=== PATIENT | female | born 1960 | race Caucasian/White ===

== ENCOUNTER 2016-09-13 18:11 | Emergency (ER) | payer OTHER ==
[~2016-09-13] VITALS: Ht 167.6 cm; Wt 771.4 kg
[2016-09-13 19:04] LABS: HEMATOCRIT 38.9 % (36.0-46.0); MCH 31.5 PG (29.0-34.0); MCHC 34.7 G/DL (30.0-36.0); MCV 90.7 FL (83-99); MEAN PLAT.VOLUME 10.4 uM^3 (9.5-12.4); PLATELET COUNT 196 K/uL (156-360); RBC DIS.WIDTH-CV 13.8 % (11.8-14.6); RBC DIS.WIDTH-SD 44.8 % (39-53); RED BLOOD COUNT 4.29 M/uL (3.80-5.20); WHITE BLOOD COUNT 5.6 K/uL (4.1-10.2)
[2016-09-13 19:18] LABS: CHLORIDE 112 mEq/L (99-109); POTASSIUM 3.3 mEq/L (3.7-5.4); SODIUM 145 mEq/L (136-147)
[2016-09-13 19:20] LABS: GLUCOSE 127 mg/dL (70-99)
[2016-09-13 19:21] LABS: ANION GAP 11 MEQ/L (2-14)
[2016-09-13 19:24] LABS: UREA NITROGEN (BUN) 13 mg/dL (9-23)
[2016-09-13 19:25] LABS: GFR ESTIMATE (CALCULATED) > 59 mL/min/
[2016-09-13] MEDS ORDERED: PEN-VEE K,VEET500 MG PO (20:54)
[2016-09-13] MEDS ORDERED: VENTOLIN HFA18 GM IH (20:54)
[2016-09-13 21:07] VITALS: BP 128/60
== END 2016-09-13 21:10 | disposition home or self-care (01) ==
LOC: EME 18:11 → RME 18:11
DX: J40 Bronchitis, not specified as acute or chronic (principal); K04.7 Periapical abscess without sinus; I10 Essential (primary) hypertension; Z77.22 Contact with and (suspected) exposure to environmental tobacco smoke (acute) (chronic); Z88.6 Allergy status to analgesic agent
CPT/HCPCS: 71020; 80048; 85027; 99281; 99284

== ENCOUNTER 2017-07-01 17:06 | Emergency (ER) | payer OTHER ==
[~2017-07-01 17:06] MED LIST: PEN-VEE K,VEET500 MG PO; VENTOLIN HFA18 GM IH
== END 2017-07-01 17:35 | disposition left against medical advice (07) ==
LOC: EME 17:06
DX: M54.9 Dorsalgia, unspecified (principal); M79.604 Pain in right leg; M79.605 Pain in left leg; Z53.21 Procedure and treatment not carried out due to patient leaving prior to being seen by health care provider

== ENCOUNTER 2017-11-02 21:53 | Observation (INO) | payer OTHER ==
[~2017-11-02] VITALS: Ht 167.6 cm; Wt 71.0 kg
[2017-11-02 22:42] LABS: HEMATOCRIT 37.6 % (36.0-46.0); HEMOGLOBIN 12.8 G/DL (11.9-15.5); MCH 30.7 PG (29.0-34.0); MCV 90.2 FL (83-99); PLATELET COUNT 239 K/uL (156-360); RBC DIS.WIDTH-CV 13.7 % (11.8-14.6); RBC DIS.WIDTH-SD 45.6 % (39-53); RED BLOOD COUNT 4.17 M/uL (3.80-5.20); WHITE BLOOD COUNT 8.8 K/uL (4.1-10.2)
[2017-11-02 22:54] LABS: CHLORIDE 109 mEq/L (99-109); SODIUM 142 mEq/L (136-147)
[2017-11-02 22:55] LABS: GLUCOSE 97 mg/dL (70-99)
[2017-11-02 22:59] LABS: CREATININE 0.8 mg/dL (0.6-1.3); GFR ESTIMATE (CALCULATED) > 59 mL/min/
[2017-11-02 23:00] LABS: UREA NITROGEN (BUN) 10 mg/dL (9-23)
[2017-11-02 23:07] LABS: TROP-I INTERPRETATION NEGATIVE; TROPONIN-I < 0.01 ng/mL (0.0-0.30)
[2017-11-03 01:27] LABS: TROP-I INTERPRETATION NEGATIVE; TROPONIN-I < 0.01 ng/mL (0.0-0.30)
[2017-11-03] MEDS ORDERED: OXYCODONE HCL10 MG PO (03:11)
[2017-11-03] MEDS ORDERED: OXYMORPHONE HCL10 M1 PO (03:11)
[2017-11-03] MEDS ORDERED: VALIUM5 MG PO (03:13)
[2017-11-03] MEDS ORDERED: NEURONTIN400 MG PO (03:13)
[2017-11-03 03:36] LABS: APPEARANCE CLEAR ((CLEAR)); BILIRUBIN NEGATIVE; BLOOD NEGATIVE; COLOR YELLOW ((YELLOW)); GLUCOSE (STRIP) NEGATIVE; KETONES 5; LEUKOCYTES NEGATIVE; NITRITE NEGATIVE; PROTEIN (STRIP) NEGATIVE; SPECIFIC GRAVITY 1.013 (1.000-1.030); UCUL ADDED? NO; UROBILINOGEN 0.2 MG/DL (0.2-1.0)
[2017-11-03 07:33] VITALS: BP 134/60
[2017-11-03 09:17] VITALS: BP 131/70
[2017-11-03 11:21] VITALS: BP 130/59
[2017-11-03 12:55] LABS: TROP-I INTERPRETATION NEGATIVE; TROPONIN-I < 0.01 ng/mL (0.0-0.30)
[2017-11-03 13:47] LABS: HDL CHOLESTEROL 43 MG/DL (Desirable>=50); LDL CHOLESTEROL 87 mg/dL (Desirable<100); NON-HDL CHOLESTEROL 104 mg/dL (Desirable<160); TOTAL CHOLESTEROL 147 mg/dL (Desirable<200); TRIGLYCERIDES 87 MG/DL (Normal: <150)
[2017-11-03 14:05] LABS: HEMOGLOBIN A1c (GLYCOHEMOGLOB) 5.6 % (Below 5.7)
[2017-11-03 15:33] VITALS: BP 119/63
[2017-11-03 18:42] LABS: TROP-I INTERPRETATION NEGATIVE; TROPONIN-I < 0.01 ng/mL (0.0-0.30)
[2017-11-03 19:00] VITALS: BP 111/55
[2017-11-03 23:34] VITALS: BP 99/57
[2017-11-04 03:15] VITALS: BP 120/58
[2017-11-04 05:10] LABS: HEMATOCRIT 35.1 % (36.0-46.0); HEMOGLOBIN 11.4 G/DL (11.9-15.5); MCH 29.9 PG (29.0-34.0); MCHC 32.5 G/DL (30.0-36.0); MCV 92.1 FL (83-99); PLATELET COUNT 195 K/uL (156-360); RBC DIS.WIDTH-CV 14.1 % (11.8-14.6); RBC DIS.WIDTH-SD 47.8 % (39-53); RED BLOOD COUNT 3.81 M/uL (3.80-5.20); WHITE BLOOD COUNT 5.5 K/uL (4.1-10.2)
[2017-11-04 05:33] LABS: CHLORIDE 110 MEQ/L (99-109); CREATININE 0.8 MG/DL (0.6-1.3); GFR ESTIMATE (CALCULATED) > 59 mL/min/; GLUCOSE 95 mg/dL (70-99); POTASSIUM 3.8 MEQ/L (3.7-5.4); SODIUM 143 MEQ/L (136-147); UREA NITROGEN (BUN) 14 mg/dL (9-23)
[2017-11-04 07:17] VITALS: BP 117/62
[2017-11-04 09:40] LABS: APPEARANCE CLEAR ((CLEAR)); BILIRUBIN NEGATIVE; BLOOD NEGATIVE; COLOR YELLOW ((YELLOW)); GLUCOSE (STRIP) NEGATIVE; KETONES NEGATIVE; LEUKOCYTES TRACE; NITRITE NEGATIVE; PROTEIN (STRIP) NEGATIVE; SPECIFIC GRAVITY 1.019 (1.000-1.030); UROBILINOGEN 0.2 MG/DL (0.2-1.0)
[2017-11-04 09:44] LABS: BACTERIA NONE SEEN /HPF; EPITHELIAL CELLS RARE /HPF; MUCUS TRACE /LPF; RED BLOOD CELLS 0-5 /HPF (0-5); UCUL ADDED? NO; WHITE BLOOD CELLS 0-5 /HPF (0-5)
[2017-11-04] MEDS ORDERED: NITROSTAT0.4 MG SL (10:17)
[2017-11-04] MEDS ORDERED: LOPRESSOR25 MG PO (10:17)
[2017-11-04] MEDS ORDERED: ATORVASTATIN CA40 MG PO (10:17)
[2017-11-04] MEDS ORDERED: FAMOTIDINE20 MG PO (10:18)
[2017-11-04 11:16] VITALS: BP 111/55
== END 2017-11-04 14:16 | disposition home or self-care (01) ==
LOC: EME 21:53 → 5WEST 11-03 06:07 → EDOF 11-03 06:07 → ENRESERV 11-03 06:09 → 5WEST 11-03 07:20 → ENPENDDIS 11-04 13:20 → 5WEST 11-04 14:16
PROVIDERS: Emergency Medicine; Hospitalist; Internal Medicine
DX: R07.89 Other chest pain (principal); F17.210 Nicotine dependence, cigarettes, uncomplicated; G89.4 Chronic pain syndrome; F32.9 Major depressive disorder, single episode, unspecified; M79.7 Fibromyalgia; I10 Essential (primary) hypertension; F41.9 Anxiety disorder, unspecified; F90.9 Attention-deficit hyperactivity disorder, unspecified type
CPT/HCPCS: 71046; 80048; 80061; 81003; 83036; 84484; 85027; 85379; 85652; 86140; 87040; 93005; 99281; 99284; G0378; J2405; J7030

== ENCOUNTER 2017-11-29 07:40 | Emergency (ER) | payer OTHER ==
[~2017-11-29] VITALS: Ht 167.6 cm; Wt 67.6 kg
[~2017-11-29 07:40] MED LIST changes: +ATORVASTATIN CA40 MG PO; +FAMOTIDINE20 MG PO; +LOPRESSOR25 MG PO; +NEURONTIN400 MG PO; +NITROSTAT0.4 MG SL; +OXYCODONE HCL10 MG PO; +OXYMORPHONE HCL10 M1 PO; +VALIUM5 MG PO
[2017-11-29 07:42] VITALS: BP 163/119
== END 2017-11-29 09:01 | disposition left against medical advice (07) ==
LOC: EME 07:40
DX: G89.29 Other chronic pain (principal); M25.551 Pain in right hip; Z53.21 Procedure and treatment not carried out due to patient leaving prior to being seen by health care provider

== ENCOUNTER 2017-12-07 13:26 | Emergency (ER) | payer OTHER ==
[~2017-12-07] VITALS: Ht 167.6 cm; Wt 66.8 kg
[2017-12-07 14:15] LABS: APPEARANCE CLEAR ((CLEAR)); BILIRUBIN NEGATIVE; BLOOD NEGATIVE; COLOR COLORLESS ((YELLOW)); GLUCOSE (STRIP) NEGATIVE; KETONES NEGATIVE; LEUKOCYTES NEGATIVE; NITRITE NEGATIVE; PROTEIN (STRIP) NEGATIVE; SPECIFIC GRAVITY 1.002 (1.000-1.030); UCUL ADDED? NO; UROBILINOGEN 0.2 MG/DL (0.2-1.0)
[2017-12-07 14:16] LABS: HEMATOCRIT 42.4 % (36.0-46.0); HEMOGLOBIN 14.8 G/DL (11.9-15.5); MCH 31.4 PG (29.0-34.0); MCHC 34.9 G/DL (30.0-36.0); PLATELET COUNT 275 K/uL (156-360); RBC DIS.WIDTH-CV 13.2 % (11.8-14.6); RBC DIS.WIDTH-SD 43.5 % (39-53); RED BLOOD COUNT 4.71 M/uL (3.80-5.20); WHITE BLOOD COUNT 9.7 K/uL (4.1-10.2)
[2017-12-07 14:27] LABS: ALBUMIN 4.5 g/dL (3.2-4.8)
[2017-12-07 14:28] LABS: CHLORIDE 107 mEq/L (99-109); POTASSIUM 4.2 mEq/L (3.7-5.4); SODIUM 141 mEq/L (136-147)
[2017-12-07 14:30] LABS: GLUCOSE 121 mg/dL (70-99); TOTAL PROTEIN 7.8 g/dL (6.4-8.3)
[2017-12-07 14:32] LABS: TOTAL BILIRUBIN 0.5 mg/dL (0.0-1.0)
[2017-12-07 14:33] LABS: ALKALINE PHOSPHATASE 159 IU/L (3-129)
[2017-12-07 14:34] LABS: CREATININE 0.8 mg/dL (0.6-1.3); GFR ESTIMATE (CALCULATED) > 59 mL/min/
[2017-12-07 14:35] LABS: AST (GOT) 15 IU/L (2-34); UREA NITROGEN (BUN) 12 mg/dL (9-23)
[2017-12-07 14:37] LABS: ALT (GPT) 17 IU/L (3-49)
[2017-12-07] MEDS ORDERED: ATARAX,VISTARIL50 MG PO (17:24)
[2017-12-07 17:37] VITALS: BP 153/87
== END 2017-12-07 17:38 | disposition home or self-care (01) ==
LOC: EME 13:26
DX: M25.551 Pain in right hip (principal); F41.9 Anxiety disorder, unspecified; W00.0XXA Fall on same level due to ice and snow, initial encounter; M16.11 Unilateral primary osteoarthritis, right hip; I10 Essential (primary) hypertension; M79.7 Fibromyalgia; G89.29 Other chronic pain; M54.9 Dorsalgia, unspecified; J45.909 Unspecified asthma, uncomplicated; F32.9 Major depressive disorder, single episode, unspecified; F31.9 Bipolar disorder, unspecified; F17.200 Nicotine dependence, unspecified, uncomplicated; Z88.6 Allergy status to analgesic agent
CPT/HCPCS: 73502; 80053; 81003; 85027; 93005; 99281; 99284; Q0177